=== PATIENT | female | born 1960 | race Caucasian/White ===

== ENCOUNTER 2018-05-31 10:41 | Emergency (ER) | payer MEDICAID ==
[~2018-05-31] VITALS: Ht 160 cm; Wt 119.0 kg
[2018-05-31] MEDS ORDERED: HYDR-3240 PO (11:20)
[2018-05-31] MEDS ORDERED: OMEP20TA62 PO (11:20)
[2018-05-31] MEDS ORDERED: VITA1CAP PO (11:20)
[2018-05-31] MEDS ORDERED: INCRUSE (11:20)
[2018-05-31] MEDS ORDERED: MULTIVITAMIN (11:20)
--- NOTE | 2018-05-31 11:23 | NUR ---
PT TO ED FOR RIGHT LOWER LEG/ANKLE PAIN AND SWELLING X3 MONTHS. CONNECTED TO MONITORS. VSS. PA PRESENT FOR ASSESSMENT. AWAITING ORDERS.
--- NOTE | 2018-05-31 12:05 | NUR ---
pt back from xray and to us at this time.
--- NOTE | 2018-05-31 12:38 | NUR ---
pt back form us. vss. no needs at this time. call light within reach. awaiting results.
[2018-05-31] MEDS ORDERED: SODIUM CHLORIDE FLUSH 10ML SYR IVF ONE (13:00)
--- NOTE | 2018-05-31 13:00 | NUR ---
new orders received for ct. pt resting in room. no needs at this time. call light within reach.
--- NOTE | 2018-05-31 13:20 | NUR ---
iv established. us at beside.
[2018-05-31 13:27] VITALS: BP 145/74
--- NOTE | 2018-05-31 13:39 | NUR ---
ct cancelled. edmd to bedside to update on poc. awaiting dispo.
== END 2018-05-31 13:59 | disposition home or self-care (01) ==
LOC: ED 13:40
DX: G89.29 Other chronic pain (principal); M25.571 Pain in right ankle and joints of right foot; J44.9 Chronic obstructive pulmonary disease, unspecified
CPT/HCPCS: 36415; 80047; 93922; 99284